=== PATIENT | male | born 1950 | race Caucasian/White ===

== ENCOUNTER 2024-03-01 08:10 | Outpatient (CLI) | payer OTHER ==
[2024-03-01] MEDS ORDERED: Iopamidol 300 61% 100 ML VIAL FS ONE (09:46)
[2024-03-01] MEDS ORDERED: Magnevist 469MG/ML 20 ML VIAL ONE (10:10)
== END 2024-03-01 08:11 | disposition home or self-care (01) ==
LOC: CSHMRI 08:10
PROVIDERS: ATTEND Urology
DX: R97.20 Elevated prostate specific antigen [PSA] (principal); K21.9 Gastro-esophageal reflux disease without esophagitis; K76.9 Liver disease, unspecified; N40.2 Nodular prostate without lower urinary tract symptoms; Z98.890 Other specified postprocedural states
CPT/HCPCS: 72197; 74170